=== PATIENT | male | born 2000 | race Caucasian/White ===

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

== ENCOUNTER 2024-11-28 15:43 | Emergency (ER) | payer OTHER, SELFPAY ==
--- NOTE | 2024-11-28 15:45 | DI.RAD_ITS ---
Exam(s) XR ANKLE LT COMPLETE EXAM: XR ANKLE LT COMPLETE h CLINICAL HISTORY: pop to ankle, + swelling and pain.. TECHNIQUE: 2D digital imaging was performed. COMPARISON: No exams were available for comparison FINDINGS: 3 views There is a fracture on the lateral aspect of the ankle in the lateral aspect of the mid talus. There does not appear to be an actual fracture of the lateral malleolus. Talar dome appears intact. There is no widening the ankle mortise. IMPRESSION: There is an acute appearing fracture on the lateral aspect of the mid talus. DATA REPOSITORY: RADIATION DOSE DELIVERED:
[2024-11-28 15:46] VITALS: BP 157/77; PULSE 93; RESP 18; O2SAT 97
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
--- NOTE | 2024-11-28 17:00 | DI.CT_ITS ---
Exam(s) CT LOWER EXTREMITY LT WO EXAM: CT LOWER EXTREMITY LT WO CLINICAL HISTORY: L talar fx, eval articular involvment. TECHNIQUE: Imaging Protocol: Axial computed tomography images with coronal and sagittal reformatted images were created and reviewed. CONTRAST MATERIAL: Intravenous: None COMPARISON: Ankle x-rays 11/28/2024 reviewed FINDINGS: OSSEOUS: There are no fractures of the malleoli and there is no widening the ankle mortise. However, there is significant fractures on both sides of the talar neck, this being comminuted and displaced on the lateral aspect of the talus. Fracture of the medial aspect of the talus exhibits minimal if any significant displacement. Also involves the subtalar joint surface the chest posterior to the sinus tarsi. There is no fracture of the calcaneus and sustentacular in talus. Fracture lines do not extend to the talonavicular joint. SOFT TISSUES: There is soft tissue swelling on both sides the ankle. No distinct focal fluid collection seen. IMPRESSION: Fractures on both sides of the talus as described above. Report called by myself to the ER provider 11/28/2024 at 5:50 p.m. RADIATION DOSE DELIVERED: 107.38mGy.cm Total DLP DATA REPOSITORY: All CT scans at this facility are submitted to the National Radiology Data Registry (NRDR) Dose Index Registry (DIR) with the [employer] ([employer]). RADIATION OPTIMIZATION: All CT scans at this facility use at least one of these dose optimization techniques: automated exposure control; mA and/or kV adjustment per patient size (includes targeted exams where dose is matched to clinical indication); or iterative reconstruction.
[2024-11-28 17:04] VITALS: BP 131/64; PULSE 62; TEMP 36.4
[2024-11-28] MEDS: Acetaminophen 325 MG TAB 650 MG PO (18:34)
--- NOTE | 2024-12-01 09:24 | NUR.NOTE ---
Access chart to print demographic sheet for [facility] billing requisition. Nursing Note:
--- NOTE | 2024-12-01 16:03 | NUR.NOTE ---
Addendum entered by Allyson Cabrales 12/02/24 14:14: Access chart to review the referral that was placed to [facility]. Addendum entered by Allyson Cabrales 12/01/24 16:17: Called patient, left message on cell phone that he will be getting a call from [facility] regarding an appt for his ankle fracture. Per Dr. Iniguez unable to perform this surgery at [facility]. Original Note: Access chart to determine if referral to [facility] had been done. Nursing Note:
== END 2024-11-28 18:35 | disposition home or self-care (01) ==
PROVIDERS: Emergency Provider Nurse Practitioner Family
DX: S92.112A Displaced fracture of neck of left talus, initial encounter for closed fracture (principal); V18.4XXA Pedal cycle driver injured in noncollision transport accident in traffic accident, initial encounter; Y92.482 Bike path as the place of occurrence of the external cause; Y93.55 Activity, bike riding
CPT/HCPCS: 29515; 99284; 73610; 73700